=== PATIENT | female | born 1980 | race Two or more races ===

== ENCOUNTER 2025-05-05 17:37 | Emergency (ER) | payer OTHER ==
[~2025-05-05] VITALS: Ht 172.7 cm; Wt 186.4 kg
[2025-05-05] MEDS ORDERED: ONDANSETRON 4 MG TAB.RAPDIS ONE (17:53)
[2025-05-05] MEDS: ONDANSETRON 4 MG TAB.RAPDIS PO ONE (17:54)
[2025-05-05] MEDS ORDERED: ONDA4TAB5 PO (20:53)
[2025-05-05 21:08] VITALS: BP 134/68; TEMP 98.2; O2SAT 94
== END 2025-05-05 21:09 | disposition home or self-care (01) ==
LOC: ER 17:40
DX: F12.90 Cannabis use, unspecified, uncomplicated (principal); R11.2 Nausea with vomiting, unspecified
CPT/HCPCS: 99284; Q0162